=== PATIENT | male | born 1980 | race Caucasian/White ===

== ENCOUNTER 2023-03-04 15:34 | Inpatient (IN) | payer MEDICAID, SELFPAY ==
[2023-03-04 15:35] VITALS: BP 203/119; PULSE 118; RESP 14; TEMP 36.8; O2SAT 100; BMI 24.2
--- NOTE | 2023-03-04 15:59 | EX.ED.DYSGE1 ---
HPI History of Present Illness Chief Complaint: Substance Abuse Informant: patient and family Narrative Narrative: 42-year-old male presenting to the emergency room seeking detox services. Patient states that for the past 5 years he has been a daily methamphetamine user. For the past year he has been using daily fentanyl. He states that he uses his fentanyl and what ever way that he can including an IV. He notes daily alcohol use. He states that he drinks to pass out and then takes methamphetamines to help wake himself up. He uses fentanyl whenever he can. Patient notes that he is not had any legal issues since around 2016. He is not currently working. His family is presenting with him. His brother of an overdose recently. He states he was intubated for 2 weeks at [facility] following a fentanyl overdose. Since then he has had several other overdoses requiring hospital visits. He has used today. Last alcoholic drink was about 2 hours ago. Patient notes that he has been diagnosed with hepatitis C not currently on any medications. [facility] Medical History Alcohol abuse Anxiety and depression Hepatitis C Hypertension IV drug user Polysubstance dependence including opioid drug with daily use Tobacco use Allergy/AdvReac Type Severity Reaction Status Date / Time No Known Allergies Allergy Verified 03/04/23 15:35 Family History (Updated 03/04/23 @ 16:[address] Stefany Haile MD) Grandfather Alcohol abuse Paternal grandfather. Sister Alcohol abuse Opiate abuse, continuous Brother Alcohol abuse Opiate abuse, continuous Father Osteoarthritis Mother No problems noted. Surgical History No history of previous surgery Social History (Updated 03/04/23 @ 16:[address] Stefany Haile MD) household members: none Smoking Status: Current every day smoker tobacco type: cigarettes Smoking packs per day: 0.25 Smoking cigarettes per day: 5.0 alcohol intake: current alcohol intake frequency: 3 or more drinks per day Alcohol type: beer and hard liquor details: Daily if able, drinks until passes out. substance use type: marijuana, amphetamines, opiates, IV drugs and methamphetamine ROS ROS ED Constitutional Constitutional ED: Denies chills, fever(s) or weight loss Eyes Eyes: Denies change in vision or diplopia ENT ENT ED: Denies ear pain, rhinorrhea or sore throat Cardiovascular Cardiovascular: Denies chest pain, orthopnea, palpitations or racing heartbeat Respiratory/Chest Respiratory/Chest: Denies cough, dyspnea or orthopnea Gastrointestinal Gastrointestinal: Denies abdominal pain, diarrhea, nausea or vomiting Genitourinary Genitourinary ED: Denies dysuria, hematuria or urinary frequency Musculoskeletal Musculoskeletal: Denies arthralgias or myalgias Integumentary Denies abscess or rash Neurologic Neurologic: Denies headache(s) or weakness Psychiatric Psychiatric: Denies anxiety, depression, suicidal ideation or suicidal thoughts Endocrine Endocrinology: Denies polydipsia, polyphagia or polyuria Allergic/Immunologic Allergic/Immunologic ED: Denies mouth swelling, tongue swelling or urticaria EXAM Physical Exam Const Vital Signs: 03/04/23 15:35 Temperature 98.2 F Temperature Source Temporal Pulse Rate 118 H Respiratory Rate 14 Blood Pressure 203/119 H Blood Pressure Mean 147 Pulse Ox 100 Oxygen Delivery Method Room Air Positive well nourished and well developed General Appearance ED: well developed HEENT Reports normocephalic, head/scalp atraumatic and moist mucous membranes Eyes PERRL and EOMs intact bilaterally Neck no lymphadenopathy, supple and no JVD Resp normal respiratory effort and clear to auscultation bilaterally Cardio regular rate, regular rhythm and no murmurs Rate: tachycardic GI normal to inspection, nondistended, normoactive bowel sounds and non-tender Palpation: soft Back/Spine no CVA tenderness and normal ROM Extremity normal to inspection General Extremety ED: Negative for edema General Extremity: Negative for edema Neuro oriented x3 and CN's II-XII intact bilaterally Sensorium / Orientation: alert Motor Exam: strength 5/5 throughout Psych mental status grossly normal Mood & Affect: anxious and tearful Skin no rashes or lesions noted and no wounds MDM MDM MDM Narrative Medical decision making narrative: I spoke with the patient we will obtain an HIV test in addition to his ED addiction labs. Blood pressure will be rechecked and addressed if needed. At the time of examination he appears asymptomatic from his hypertension. I will speak with the hospitalist regarding admission. History & Record Review Discussion w/independent historian: Patient and Family Lab Data Attestation: I reviewed the patient's lab results. Labs: Laboratory Results - last 24 hr 03/04/23 16:09 WBC 8.8 RBC 4.68 Hgb 13.3 Hct 41.8 MCV 89.3 MCH 28.4 MCHC 31.8 L RDW Std Deviation 42.5 RDW Coeff of Carli 13.2 Plt Count 419 MPV 9.5 Immature Gran % (Auto) 0.300 Neut % (Auto) 67.0 Lymph % (Auto) 23.9 [place] % (Auto) 7.1 Eos % (Auto) 1.1 Baso % (Auto) 0.6 Absolute Neuts (auto) 5.9 Absolute Lymphs (auto) 2.11 Nucleated RBC % 0 Sodium 140 Potassium 3.3 L Chloride 109 H Carbon Dioxide 24.0 Anion Gap 7 BUN 10 Creatinine 1.07 Estim Creat Clear Calc 81.16 Est GFR (MDRD) Af Amer 97 Est GFR (MDRD) Non-Af 80 BUN/Creatinine Ratio 9.3 L Glucose 114 H Calcium 8.6 Magnesium 1.8 Total Bilirubin 0.10 L AST 15 ALT 20 Alkaline Phosphatase 108 Total Protein 6.5 Albumin 3.1 L Globulin 3.4 Albumin/Globulin Ratio 0.9 Ethyl Alcohol 29.0 Management Discussion w/another healthcare provider: Hospitalist Discharge Plan Dx/Rx/DC Orders Clinical Impression: Alcohol abuse, Polysubstance dependence including opioid drug with daily use, Hypertension Disposition Disposition: Acute Care Hospital [facility]
--- NOTE | 2023-03-04 16:10 | HP.PCM.HOS_ITS ---
HPI - General General Date of Admission: 03/04/23 Date of Service: 03/04/23 Chief Complaint: Opiate/EtOH/Methamphetamine abuse, withdrawal. HPI Narrative The patient is a 42 y/o M w/ PMHx: HTN not on regimen, Anxiety and Depression, Hepatitis C, Polysubstance abuse (EtOH beer/hard liquor, last use ~2 hours prior to ED arrival, Opiates primarily with Fentanyl daily, used several different ways including IV, last use earlier in the AM, Methamphetamine daily, last use earlier in the AM), Tobacco use who presents to the [facility] ED on 03/04/23 with ongoing substance abuse, both EtOH and opiates with acute EtOH withdrawal and acute Opiate withdrawal, onset starting on ED presentation in the late afternoon, progressively worsening with onset of nausea, tremors, agitation and intermittent fatigue, diaphoresis, body aches, piloerection, restless legs, tactile disturbances. Patient is interested in attaining both clean and sober status. He recently had his brother passed secondary to an overdose of fentanyl. He himself had previously this past year required intubation secondary to overdose. He denies any substance abuse and his parents and notes alcoholism in his paternal grandfather. He notes that all of his siblings have substance abuse issues. In the ED workup included T98.2, heart rate 118, BP 203/119, respiratory rate 14, no percent room air, alcohol, CBC, CMP, UDS, PT, alcohol blood serum level pending upon evaluation. [facility] Medical History Alcohol abuse Anxiety and depression Hepatitis C Hypertension IV drug user Polysubstance dependence including opioid drug with daily use Tobacco use Allergy/AdvReac Type Severity Reaction Status Date / Time No Known Allergies Allergy Verified 03/04/23 15:35 Family History (Updated 03/04/23 @ 16:[address] Stefany Haile MD) Grandfather Alcohol abuse Paternal grandfather. Sister Alcohol abuse Opiate abuse, continuous Brother Alcohol abuse Opiate abuse, continuous Father Osteoarthritis Mother No problems noted. Surgical History No history of previous surgery Social History (Updated 03/04/23 @ 16:[address] Stefany Haile MD) household members: none Smoking Status: Current every day smoker tobacco type: cigarettes Smoking packs per day: 0.25 Smoking cigarettes per day: 5.0 alcohol intake: current alcohol intake frequency: 3 or more drinks per day Alcohol type: beer and hard liquor details: Daily if able, drinks until passes out. substance use type: marijuana, amphetamines, opiates, IV drugs and methamphetamine ROS ROS Narrative Admission Review of Systems: CONSTITUTIONAL: No weight loss, fever, chills, + weakness or fatigue. HEENT: Eyes: No visual loss, blurred vision, double vision or yellow sclerae. Ears, Nose, Throat: No hearing loss, sneezing, congestion, runny nose or sore throat. SKIN: No rash or itching, lesions, wounds. CARDIOVASCULAR: No chest pain, chest pressure or chest discomfort, palpitations, edema, orthopnea, syncopal events. RESPIRATORY: No shortness of breath, cough or sputum, wheezing, hemoptysis. GASTROINTESTINAL: + anorexia, nausea. No vomiting or diarrhea, abdominal pain, melena, BRBPR. GENITOURINARY: No dysuria, frequency, urgency or retention. NEUROLOGICAL: + Tactile disturbances, tremors. No headache, dizziness, syncope, paralysis, ataxia, numbness or tingling in the extremities, focal weakness, change in bowel or bladder control, seizure. MUSCULOSKELETAL: + muscle, back pain, joint pain or stiffness. HEMATOLOGIC: No anemia, bleeding or bruising. LYMPHATICS: No enlarged nodes. No history of splenectomy. PSYCHIATRIC: + history of depression and anxiety. ENDOCRINOLOGIC: + reports of sweating, cold or heat intolerance. No polyuria or polydipsia. ALLERGIES: No history of asthma, hives, eczema or rhinitis. Vital Signs Vital Signs Vital Signs: 03/04/23 15:35 Temperature 98.2 F Temperature Source Temporal Pulse Rate 118 H Respiratory Rate 14 Blood Pressure 203/119 H Blood Pressure Mean 147 Pulse Ox 100 Oxygen Delivery Method Room Air Weight Weight: 150 lb 2.157 oz Body Mass Index (BMI) 24.2 Physical Exam Narrative Physical Examination: General: Awake, alert, oriented x 3 and cooperative, seated upright in the ED bed, tearful, tremulous, anxious. Skin: Normal color, normal turgor, no icterus, no cyanosis except for occasional staged ecchymoses, abrasion, track. HEENT: AT/NC, EOMI, PERRLA, dry MM, no carotid bruits or JVD noted. Lungs: CTA bilaterally, moderate effort, mild decrease BL bases, no rales, ronchi or wheezing. Heart: Tachycardic with regular rhythm; no gallop, rub audible. Abdomen: Soft, NTTP, ND, hyperactive BS, mild appreciated HM. Extremities: No cyanosis, clubbing, or edema. Neurological: Patient awake, alert, oriented as noted, cognitive function intact; pupils equally reactive to light and accommodation, cranial nerves II- XII grossly normal, moving all 4 extremities, no focal deficits, strength mildly to moderately globally decreased, mildly tremulous, admits to tactile disturbances, anxious with labile mood Psychiatric: Affect appears anxious, labile mood, underlying history of anxiety and depression. Results Lab / Micro Data 03/04/23 16:09 03/04/23 16:09 Assessment & Plan Assessment/Plan (1) Opiate withdrawal: (2) Alcohol withdrawal: PLAN: Plan The patient is a 42 y/o M w/ PMHx: HTN not on regimen, Anxiety and Depression, Hepatitis C, Polysubstance abuse (EtOH beer/hard liquor, last use ~2 hours prior to ED arrival, Opiates primarily with Fentanyl daily, used several different ways including IV, last use earlier in the AM, Methamphetamine daily, last use earlier in the AM), Tobacco use who presents to the [facility] ED on 03/04/23 with ongoing substance abuse, both EtOH and opiates with acute EtOH withdrawal and acute Opiate withdrawal. #1. Acute EtOH Withdrawal: Will admit to medical surgical floor, routine labs obtained in the ED upon presentation and pending upon evaluation. Given interest in sobriety, will initiate and continue on protocol with taper course of Phenobarbital, scheduled gabapentin for seizure prophylaxis, as needed Catapres, Bentyl, Vistaril, IV fluids, IV antiemetics, Tylenol as needed for pain. Will consult Case management for assistance for transition to next level of rehabilitation care. Mag, phos pending. Maintain on CIWA protocol concurrently. #2. Acute Opiate Withdrawal: Given patient concurrent usage of several opiates, will additionally initiate and continue on protocol with tapering course of Subutex, as needed tylenol, ibuprofen, bowel regimen, gabapentin, Bentyl, Vistaril, methocarbamol, clonidine, PRN nightly trazodone for insomnia, IV fluids, IV antiemetics. Once patient clinically improved and completion of taper nearing will plan consultation with case management for transition to next level of rehabilitation care. #3. Hypertension, untreated: Patient with significant BP elevation upon presentation, he notes prior he had very transiently been on medication but has not been taking for a lengthy amount of time. Discussed with patient and his preference is given currently in setting of withdrawal, will continue to monitor and if remains elevated despite withdrawal treatment would initiate hypertension oral regimen but in the interim will maintain on IV PRN hydralazine. #4. Polysubstance Abuse, Chronic w/ Known Hepatitis C, unclear treatment or status history: Will obtain HIV and hepatitis panel given significant polysubstance use. #5. Tobacco use: Encourage tobacco cessation, RT consulted for education, NR ordered. #6. Anxiety and depression: Not treated, likely contributes greatly to his current presentation, case management/social work consulted and would benefit from ongoing counseling potentially medications. #7. DVT Prophylaxis: Low risk, encourage ambulation. Charges/Coding Visit Charges Inpatient E&M: 26109 Init Hosp L3
[2023-03-04 16:15] LABS: Absolute Lymphocyte Count 2.11 X10^3/uL (0.83-4.51); Absolute Neutrophil Count 5.9 X10^3/uL (2.0-7.7); Basophil# 0.05 X10^3/uL; Basophil% 0.6 % (0-1); Eosinophils% 1.1 % (0-5); Hematocrit 41.8 % (40-54); Hemoglobin 13.3 g/dL (13.0-16.5); Lymphocyte # 2.11 X10^3/ul (0.83-4.51); Lymphocyte % 23.9 % (19-41); Mean Corp Hgb Conc 31.8 g/dL (32-36); Mean Corpuscular Hgb 28.4 pg (27.0-32.0); Mean Corpuscular Volume 89.3 fL (80-94); Mean Platelet Vol. 9.5 fl (6.2-12.0); Monocyte# 0.63 X10^3/uL; Monocyte% 7.1 % (0-10); NRBC Flagged by Analyzer 0 % (0-5); Neutrophil # 5.92 X10^3/uL (2.7-7.7); Platelet Count 419 K/mm3 (150-450); RBC Distribution Width CV 13.2 % (11.6-14.6); RBC Distribution Width SD 42.5 fl (35.1-43.9); Red Blood Count 4.68 M/mm3 (4.6-6.2); White Blood Count 8.8 K/mm3 (4.4-11.0)
[2023-03-04 16:36] LABS: Prothrombin Time (Protime)PT. 13.1 SECONDS (11.7-14.9)
[2023-03-04 16:57] VITALS: BP 160/102; PULSE 101; RESP 16; O2SAT 97
[2023-03-04 17:02] LABS: ALB/GLOB Ratio 0.9 RATIO (0.9-2.4); AST(SGOT) 15 U/L (15-37); Alanine Aminotransfer ALT/SGPT 20 U/L (16-61); Albumin, Serum 3.1 g/dL (3.2-5.0); Alkaline Phosphatase 108 U/L (45-117); Anion Gap 7 (5-15); BUN 10 mg/dL (7-18); BUN/Creat Ratio 9.3 RATIO (10-20); Calcium,Total 8.6 mg/dL (8.5-10.1); Chloride 109 mmol/L (98-107); Creatinine, Serum 1.07 mg/dL (0.70-1.30); EST Glomerular Filtration Rate 80 mL/min (>60); Est Glom Filt Rate - Afr Amer 97 mL/min (>60); Estimated Creatinine Clearance 81.16 ml/min; Globulin 3.4 g/dL (2.2-4.2); Glucose 114 mg/dL (74-106); Magnesium 1.8 mg/dL (1.6-2.6); Potassium 3.3 mmol/L (3.5-5.1); Protein, Total 6.5 g/dL (6.4-8.2); Sodium Level 140 mmol/L (136-145)
[2023-03-04 17:13] LABS: Amphetamine Urine VISTA POSITIVE (<1000 ng/mL); Barbiturate Urine VISTA NEGATIVE (< 200 ng/mL); Benzodiazepine Urine VISTA NEGATIVE (< 200 ng/mL); Cocaine Urine VISTA NEGATIVE (< 300 ng/mL); Ecstacy Urine VISTA POSITIVE (< 500 ng/mL); Methadone Urine VISTA NEGATIVE (< 300 ng/mL); PCP Urine VISTA NEGATIVE (< 25 ng/mL); THC Urine VISTA POSITIVE (< 50 ng/mL); Vista UDS pH Range 5
[2023-03-04 17:24] LABS: Phosphorus 2.1 mg/dL (2.5-4.9)
[2023-03-04 17:29] VITALS: BMI 23.5
[2023-03-04 17:47] VITALS: BP 165/111; PULSE 109; RESP 14; TEMP 36.6; O2SAT 96
[2023-03-04] MEDS: Potassium Chloride Oral Tablet 20 MEQ 40 MEQ PO (18:05)
[2023-03-04] MEDS: Dicyclomine 10 MG Capsule 20 MG PO (18:05)
[2023-03-04] MEDS: Lactated Ringers 1,000 ML 125 ML IV (18:06)
[2023-03-04] MEDS: Phenobarbital 32.4 MG Tablet 64.7999999999999972 MG PO ×2 (18:06→23:02)
[2023-03-04] MEDS: Ibuprofen 600 MG Tablet PO (18:06)
[2023-03-04 18:09] LABS: HIV - WCH Non-Reactive (Nonreactive); Syphilis Antibodies Non-reactive
[2023-03-04 18:28] LABS: Hepatitis B Surface Antibody Reactive; Hepatitis B Surface Antigen Non-Reactive (Nonreactive); Hepatitis C Antibody Preliminary Reactive (Nonreactive)
[2023-03-04] MEDS: Gabapentin 300 MG Capsule PO (18:35)
[2023-03-04 23:00] VITALS: BP 165/93; PULSE 95; RESP 16; TEMP 36.8; O2SAT 98
[2023-03-04] MEDS: traZODone 100 MG Tablet PO (23:02)
[2023-03-04] MEDS: hydrOXYzine PAM 25 MG Capsule 50 MG PO (23:02)
[2023-03-04 23:14] VITALS: BP 165/93; PULSE 95
[2023-03-04] MEDS: hydrALAZINE 20 MG/ML Vial 10 MG IV (23:14)
[2023-03-05] VITALS (8 sets, daily range): BP systolic 145–162; BP diastolic 89–107; PULSE 76–121; RESP 13–18; TEMP 36.4–36.7; O2SAT 98–100
[2023-03-05] MEDS: Phenobarbital 32.4 MG Tablet 64.7999999999999972 MG PO ×6 (03:19→22:22)
[2023-03-05] MEDS: hydrOXYzine PAM 25 MG Capsule 50 MG PO ×3 (03:19→12:04)
[2023-03-05] MEDS: Folic Acid 1 MG Tablet PO (09:06)
[2023-03-05] MEDS: Thiamine Hydrochloride 100 MG Tablet PO (09:06)
[2023-03-05] MEDS: Multivitamins,Ther W-Minerals Tablet 1 TABLET PO (09:06)
[2023-03-05] MEDS: cloNIDine HCl 0.1 MG Tablet 0.100000000000000006 MG PO (09:06)
[2023-03-05] MEDS: Buprenorphine HCl 2 MG TAB.SUBL SL ×2 (09:08→18:15)
--- NOTE | 2023-03-05 11:24 | PN_ITS ---
Subjective Subjective Patient seen and examined. He had no active complaints. He denied any tremors, shakes, palpitations, fever or chills, dizziness or any other symptoms. Review of systems otherwise negative. He is tachycardic with heart rate of 121. Blood pressure was also mildly elevated at 150/93. Objective Data Objective Data Vital Signs: Vital Signs Temp Pulse Resp BP Pulse Ox O2 Del Method 97.8 F 121 H 14 150/103 H 99 Room Air 03/05/23 10:00 03/05/23 10:00 03/05/23 10:00 03/05/23 10:00 03/05/23 10:00 03/05/23 10:00 Oxygen Delivery Method Room Air Weight: 145 lb 8 oz Body Mass Index (BMI) 23.5 Intake & Output: Intake and Output for Last 24 Hours 03/03/23 03/04/23 03/05/23 23:59 23:59 23:59 Intake Total 1000 / 1000 Balance 1000 / 1000 Lab / Micro Data 03/04/23 16:09 03/04/23 16:09 Labs: Laboratory Results - last 24 hr 03/04/23 16:09: WBC 8.8, RBC 4.68, Hgb 13.3, Hct 41.8, MCV 89.3, MCH 28.4, MCHC 31.8 L, RDW Std Deviation 42.5, RDW Coeff of Carli 13.2, Plt Count 419, MPV 9.5, Immature Gran % (Auto) 0.300, Neut % (Auto) 67.0, Lymph % (Auto) 23.9, [place] % (Auto) 7.1, Eos % (Auto) 1.1, Baso % (Auto) 0.6, Absolute Neuts (auto) 5.9, Absolute Lymphs (auto) 2.11, Nucleated RBC % 0, Sodium 140, Potassium 3.3 L, Chloride 109 H, Carbon Dioxide 24.0, Anion Gap 7, BUN 10, Creatinine 1.07, Estim Creat Clear Calc 81.16, Est GFR (MDRD) Af Amer 97, Est GFR (MDRD) Non-Af 80, BUN/Creatinine Ratio 9.3 L, Glucose 114 H, Calcium 8.6, Magnesium 1.8, Total Bilirubin 0.10 L, AST 15, ALT 20, Alkaline Phosphatase 108, Total Protein 6.5, Albumin 3.1 L, Globulin 3.4, Albumin/Globulin Ratio 0.9, Ethyl Alcohol 29.0 03/04/23 16:17: PT 13.1, INR 1.0, Phosphorus 2.1 L, Syphilis Total Ab Non- reactive, Hep Bs Antigen Non-Reactive, Hep Bs Antibody Reactive, Hepatitis C Antibody Preliminary Reactive, HIV 1&2 Antibody Non-Reactive 03/04/23 16:27: Urine Opiates Screen NEGATIVE, Urine Methadone Screen NEGATIVE, Ur Barbiturates Screen NEGATIVE, Ur Phencyclidine Scrn NEGATIVE, Ur Amphetamines Screen POSITIVE H, MDMA (Ecstasy) Screen POSITIVE H, U Benzodiazepines Scrn NEGATIVE, Urine Cocaine Screen NEGATIVE, U Cannabinoids Screen POSITIVE H, Ur Drug Screen Comment Physical Exam Const alert, oriented x3 and no apparent distress General Appearance: cooperative and well developed HEENT normocephalic, head/scalp atraumatic, moist oral mucous membranes and oropharynx normal Eyes PERRL and EOMs intact bilaterally Neck no lymphadenopathy and supple Lymph Lymphatic: no lymphadenopathy noted and no lymphedema noted Resp Resp Narrative: diminished breath sounds bibasally, no wheezes or crackles. On room air. Cardio regular rhythm, S1 normal heart sound, S2 normal heart sound and no murmurs Cardio Narrative: tachycardia GI normal to inspection, nondistended, normoactive bowel sounds, soft to palpation, non-tender and non-distended Extremity normal capillary refill, no clubbing, cyanosis or edema and no calf tenderness General Extremity: no tenderness to palpation of joints or extremities Skin General Skin Exam: no breakdown Neuro CN's II-XII intact bilaterally, no focal motor deficits, no sensory deficits noted and deep tendon reflexes 2+ bilaterally Motor Exam: strength 5/5 throughout and general weakness Psych thought process normal, cooperative and affect normal Appearance: appropriate Assessment & Plan Assessment/Plan (1) Polysubstance dependence including opioid drug with daily use: (2) Alcohol abuse: (3) Opiate withdrawal: (4) Alcohol withdrawal: PLAN: Plan #Acute alcohol withdrawal * on alcohol withdrawal protocol with phenobarbital * adjunctive meds for symptomatic relief * On thiamine, folic acid and Multivite. * Patient tachycardic cultures probably part of his withdrawal from alcohol and opiates. Will monitor. * #Opiate withdrawal * On opioid withdrawal protocol with buprenorphine. * Adjunctive meds for symptomatic relief. * #Elevated blood pressure: * Has known hypertension but was only briefly on treatment and stopped. * On clonidine as needed as part of the withdrawal protocol so that should help with hypertension. * If elevated blood pressure persists, will start on oral BP meds. * #History of known hepatitis C: Unclear if he has obtained treatment. Patient counseled that if he is treatment na?ve, will need to stay clear of drugs for at least 6 while before he qualifies for treatment. #Nicotine dependence: Counseled to quit. Nicotine patch 21 mg daily. DVT prophylaxis: Low risk. Encourage ambulation. Charges/Coding Visit Charges Inpatient E&M: 10691 Subs Hosp L2
[2023-03-05] MEDS: Ondansetron 8 MG Tablet PO (14:26)
[2023-03-05] MEDS: 0.9% Saline Lock 10 ML Syringe IV (18:14)
[2023-03-05] MEDS: Gabapentin 300 MG Capsule PO (18:15)
[2023-03-05] MEDS: Dicyclomine 10 MG Capsule 20 MG PO (18:15)
[2023-03-05] MEDS: hydrALAZINE 20 MG/ML Vial 10 MG IV (18:19)
[2023-03-06] MEDS: Buprenorphine HCl 2 MG TAB.SUBL SL ×3 (01:40→17:39)
[2023-03-06] MEDS: Phenobarbital 32.4 MG Tablet 64.7999999999999972 MG PO ×6 (01:40→22:31)
[2023-03-06 04:30] VITALS: BP 134/88; PULSE 76; RESP 16; TEMP 36.5; O2SAT 97
--- NOTE | 2023-03-06 09:54 | PN.HOSP_ITS ---
Subjective Subjective No issues overnight, CIWA score 5 and Cina score of 4 Objective Data Objective Data Vital Signs: Vital Signs Temp Pulse Resp BP Pulse Ox O2 Del Method 97.7 F L 76 16 134/88 H 97 Room Air 03/06/23 04:30 03/06/23 04:30 03/06/23 04:30 03/06/23 04:30 03/06/23 04:30 03/06/23 08:11 Oxygen Delivery Method Room Air Weight: 145 lb 8 oz Body Mass Index (BMI) 23.5 Intake & Output: Intake and Output for Last 24 Hours 03/05/23 03/06/23 03/07/23 03:59 03:59 03:59 Intake Total 1000 / 1000 380 / 380 Balance 1000 / 1000 380 / 380 Lab / Micro Data 03/04/23 16:09 03/04/23 16:09 Physical Exam Narrative General: Alert, Oriented x3, Cooperative, No apparent distress HEENT: Atraumatic, PERRLA, EOMI, Normocephalic Oral: Moist Mucosa Neck: Supple, No JVD Lungs: Clear to auscultation, Normal air movement, No rhonchi, No wheeze, No rales Cardiovascular: Regular rate, Regular Rhythm, Normal S1, Normal S2, No murmurs Abdomen: Soft, Non Tender, Non-Distended, No Hepato-splenomegaly Extremities: No edema, Capillary Refill Less than 3 Seconds Skin: No rashes, No breakdown Musculoskeletal: No Tenderness to Palpation of Joints or Extremities Neurological: Cranial nerves II-XII grossly intact, Motor Exam 5/5 strength throughout, Sensory exam intact to light touch and pain Psych/Mental Status: Normal Affect, Appropriate Assessment & Plan Assessment/Plan (1) Polysubstance dependence including opioid drug with daily use: (2) Alcohol abuse: (3) Opiate withdrawal: (4) Alcohol withdrawal: PLAN: Plan #Acute alcohol withdrawal * on alcohol withdrawal protocol with phenobarbital * adjunctive meds for symptomatic relief * On thiamine, folic acid and Multivite. #Opiate withdrawal * On opioid withdrawal protocol with buprenorphine. * Adjunctive meds for symptomatic relief. #Elevated blood pressure: * Has known hypertension but was only briefly on treatment and stopped. * On clonidine as needed as part of the withdrawal protocol so that should help with hypertension. #History of known hepatitis C: Unclear if he has obtained treatment. Patient counseled that if he is treatment na?ve, will need to stay clear of drugs for at least 6 while before he qualifies for treatment. #Nicotine dependence: Counseled to quit. Nicotine patch 21 mg daily. DVT: Ambulation Charges/Coding Visit Charges Inpatient E&M: 91175 Subs Hosp L2
[2023-03-06] MEDS: Thiamine Hydrochloride 100 MG Tablet PO (10:23)
[2023-03-06] MEDS: Multivitamins,Ther W-Minerals Tablet 1 TABLET PO (10:24)
[2023-03-06] MEDS: Folic Acid 1 MG Tablet PO (10:24)
--- NOTE | 2023-03-06 11:22 | ADDICTION ---
Client is a 42 year old male who was admitted 03/04/23 via ER. He was brought in by family for self-admit to [facility]. He uses Methamphetamine/ETOH/Fentanyl daily, preferred route is IV. He reports multiple drug overdoses, recently hospitalized for 1 month. Shared his family is supportive of his recovery. He has a brother who had a fatal overdose, another brother who will be going to senior care for 20 years. He has twin sister who is supportive. Client has 2 children 19 year old daughter and 8 year son-his relationship is poor d/t clients substance use. Denies legal involvement. Currently unemployed. He has had an eight years of continuos sobriety in the past, while on Buprenorphine. His relationship with his significant other ended which led him back to active use. He resides in [facility]. Possible would like to seek treatment closer to home. He is thinking about residential-possibly wants to try outpatient. This investigative writer did discuss pros/cons of residential treatment. Client has struggled with maintaining sobriety in the past. He reports his niece works at [employer] in [place] and possibly will seek outpatient treatment. Resources/information provided. Charge nurse notified. [facility] coordinator notified.
[2023-03-06] MEDS: hydrOXYzine PAM 25 MG Capsule 50 MG PO (14:03)
[2023-03-06 17:00] VITALS: BP 141/89; PULSE 86; RESP 18; TEMP 36.9; O2SAT 99
[2023-03-06 22:28] VITALS: BP 146/94; PULSE 92; RESP 16; TEMP 37.2; O2SAT 99
[2023-03-07 02:21] VITALS: BP 161/104; PULSE 87; RESP 16; TEMP 37.2; O2SAT 97
[2023-03-07] MEDS: Phenobarbital 32.4 MG Tablet 64.7999999999999972 MG PO ×2 (02:22→09:08)
[2023-03-07] MEDS: Buprenorphine HCl 2 MG TAB.SUBL SL ×2 (02:22→09:08)
[2023-03-07 02:26] VITALS: PULSE 87
[2023-03-07] MEDS: 0.9% Saline Lock 10 ML Syringe IV (02:26)
[2023-03-07] MEDS: hydrALAZINE 20 MG/ML Vial 10 MG IV (02:26)
[2023-03-07 04:30] VITALS: BP 135/90; RESP 82
[2023-03-07] MEDS: Multivitamins,Ther W-Minerals Tablet 1 TABLET PO (09:08)
[2023-03-07] MEDS: Thiamine Hydrochloride 100 MG Tablet PO (09:08)
[2023-03-07] MEDS: Folic Acid 1 MG Tablet PO (09:08)
--- NOTE | 2023-03-07 09:20 | PCM.PN.HOSP ---
Subjective Subjective No issues overnight. Cina score of 1 and a CIWA score of 0 Objective Data Objective Data Vital Signs: Vital Signs Temp Pulse Resp BP Pulse Ox O2 Del Method 99 F 87 82 H 135/90 H 97 Room Air 03/07/23 02:21 03/07/23 02:26 03/07/23 04:30 03/07/23 04:30 03/07/23 02:21 03/07/23 09:05 Oxygen Delivery Method Room Air Weight: 145 lb 8 oz Body Mass Index (BMI) 23.5 Intake & Output: Intake and Output for Last 24 Hours 03/06/23 03/07/23 03/08/23 03:59 03:59 03:59 Intake Total 380 / 380 Balance 380 / 380 Lab / Micro Data 03/04/23 16:09 03/04/23 16:09 Physical Exam Narrative General: Alert, Oriented x3, Cooperative, No apparent distress HEENT: Atraumatic, PERRLA, EOMI, Normocephalic Oral: Moist Mucosa Neck: Supple, No JVD Lungs: Clear to auscultation, Normal air movement, No rhonchi, No wheeze, No rales Cardiovascular: Regular rate, Regular Rhythm, Normal S1, Normal S2, No murmurs Abdomen: Soft, Non Tender, Non-Distended, No Hepato-splenomegaly Extremities: No edema, Capillary Refill Less than 3 Seconds Skin: No rashes, No breakdown Musculoskeletal: No Tenderness to Palpation of Joints or Extremities Neurological: Cranial nerves II-XII grossly intact, Motor Exam 5/5 strength throughout, Sensory exam intact to light touch and pain Psych/Mental Status: Normal Affect, Appropriate Assessment & Plan Assessment/Plan (1) Polysubstance dependence including opioid drug with daily use: (2) Alcohol abuse: (3) Opiate withdrawal: (4) Alcohol withdrawal: PLAN: Plan #Acute alcohol withdrawal on alcohol withdrawal protocol with phenobarbital adjunctive meds for symptomatic relief On thiamine, folic acid and Multivite. #Opiate withdrawal On opioid withdrawal protocol with buprenorphine. Adjunctive meds for symptomatic relief. #Elevated blood pressure: Has known hypertension but was only briefly on treatment and stopped. On clonidine as needed as part of the withdrawal protocol so that should help with hypertension. #History of known hepatitis C: Unclear if he has obtained treatment. Patient counseled that if he is treatment na?ve, will need to stay clear of drugs for at least 6 while before he qualifies for treatment. #Nicotine dependence: Counseled to quit. Nicotine patch 21 mg daily. DVT: Ambulation ? Will have to discuss with 180 about discharge planning whether he is going to do outpatient or inpatient in [facility] [place] where he is from Charges/Coding Visit Charges Inpatient E&M: 89258 Subs Hosp L2
[2023-03-07 11:00] VITALS: BP 137/90; PULSE 107; RESP 18; TEMP 36.6; O2SAT 100
--- NOTE | 2023-03-07 11:29 | ADDICTION ---
Addendum entered by Autumn Maya 03/07/23 12:17: Pt has now decided that he would like inpatient treatment. Referral has been placed for [facility] in [place], [place]. They will provided transportation if approved. They will call CN with pick up man details. Original Note: Spoke with patient about treatment options. He plans to do outpatient at [facility] in [place].
--- NOTE | 2023-03-07 13:44 | NURSING ---
Pt left AMA, charge nurse had him sign paper.
--- NOTE | 2023-03-07 14:00 | CASEMGMT ---
Social Work - SDOH SDOH assessment triggered for food, transportation and utilities. Patient was admitted on the [facility] program, and from [facility] [place]. As per conversation with [facility] therapist today, the plan was to look at residential. Patient had phone assessment with [facility] in [place], [place]. This keno writer/runner presented to patient's room and found patient was not there. Per nursing, patient left AMA. -SUZANNE Cruz
== END 2023-03-07 13:44 | disposition left against medical advice (07) | DRG 770 ==
LOC: ED 16:25 → MS3 16:36
PROVIDERS: Admitting Provider Family Medicine; Emergency Provider Emergency Medicine; Visit Provider Family Medicine
DX: F10.239 Alcohol dependence with withdrawal, unspecified (principal); F11.23 Opioid dependence with withdrawal; I10 Essential (primary) hypertension; F12.90 Cannabis use, unspecified, uncomplicated; F17.210 Nicotine dependence, cigarettes, uncomplicated; Z53.29 Procedure and treatment not carried out because of patient's decision for other reasons
CPT/HCPCS: 80053; 80307; 80320; 83735; 84100; 85025; 85610; 86703; 86706; 86780; 86803; 87340; 97802; 99283; J7120; A4216; G0480